=== PATIENT | male | born 1975 | race Caucasian/White ===

== ENCOUNTER 2022-10-31 13:38 | Emergency (ER) | payer SELFPAY ==
[2022-10-31 13:39] VITALS: BP 116/78; PULSE 74; RESP 18; TEMP 36.7; O2SAT 100; BMI 35.6
--- NOTE | 2022-10-31 14:16 | EKG12_ITS ---
Test Reason : CHEST PAIN Blood Pressure : / mmHG Vent. Rate : 069 BPM Atrial Rate : 069 BPM P-R Int : 154 ms QRS Dur : 090 ms QT Int : 384 ms P-R-T Axes : 000 182 170 degrees QTc Int : 411 ms Normal sinus rhythm Right superior axis deviation T wave abnormality, consider inferior ischemia Abnormal ECG Confirmed by MARY LIU, PATI ([id number]), tape editor JOSE GOMEZ ([id number]) on 11/01/2022 1:17:36 PM Referred By: OFELIA Confirmed By:PATI HERNANDEZ MD
[2022-10-31 14:29] LABS: Absolute Lymphocyte Count 0.85 X10^3/uL (0.83-4.51); Absolute Neutrophil Count 2.9 X10^3/uL (2.0-7.7); Basophil# 0.03 X10^3/uL; Basophil% 0.7 % (0-1); Eosinophil# 0.08 X10^3/uL; Eosinophils% 1.8 % (0-5); Hemoglobin 15.9 g/dL (13.0-16.5); Lymphocyte # 0.85 X10^3/ul (0.83-4.51); Lymphocyte % 18.9 % (19-41); Mean Corp Hgb Conc 33.8 g/dL (32-36); Mean Corpuscular Hgb 28.4 pg (27.0-32.0); Mean Corpuscular Volume 83.9 fL (80-94); Mean Platelet Vol. 9.6 fl (6.2-12.0); Monocyte# 0.59 X10^3/uL; Monocyte% 13.1 % (0-10); NRBC Flagged by Analyzer 0 % (0-5); Neutrophil # 2.93 X10^3/uL (2.7-7.7); Neutrophil % 65.3 % (47-70); Platelet Count 230 K/mm3 (150-450); RBC Distribution Width SD 39.9 fl (35.1-43.9); White Blood Count 4.5 K/mm3 (4.4-11.0)
[2022-10-31 14:33] VITALS: PULSE 68; RESP 13; O2SAT 96
--- NOTE | 2022-10-31 14:35 | RAD_ITS ---
STUDY: X-RAY CHEST REASON FOR EXAM: Male, 47 years old. Chest pain TECHNIQUE: Single AP portable view of the chest. COMPARISON: None. FINDINGS: EKG electrodes are seen. The lungs are clear and expanded. Scattered calcified granulomas. There is no demonstrated pleural abnormality. Normal size heart. Normal mediastinum and bora. Normal visualized pulmonary arteries. Normal visualized aortic arch and descending thoracic aorta. Normal visualized thoracic spine. Normal visualized ribs, clavicles, and shoulders. There is no demonstrated abnormality of the visualized soft tissue structures of the upper abdomen. RAD/Chest 1 View (Portable) IMPRESSION: Normal x-ray examination of the chest. Electronically Signed: Lopez Medrano MD at 14:56 EDT ,
--- NOTE | 2022-10-31 14:41 | EDS_ITS ---
HPI History of Present Illness Chief Complaint: Chest Pain Narrative Narrative: 47-year-old male who denies significant past medical history presents with chest pain and pressure that he experienced this morning at around 230, over 12 hours ago. He states that he went to bed, and everything was fine, and woke up with chest pressure mainly on the left side of his chest. He may have been slightly nauseated but did not vomit. Does not really feel short of breath. No recent fever or cough. He has stated that over the last 6 months he is woken up and his neck and pillow have been wet with night sweats. Family history includes early coronary artery disease in his maternal grandfather. He states that he has been fine all day, and only lasted around 10 minutes earlier this morning and has not returned. He denies any DVT or PE risk factors. No leg swelling. PFSH PFSH Allergy/AdvReac Type Severity Reaction Status Date / Time No Known Allergies Allergy Verified 10/31/22 13:41 Social History Smoking Status: Never smoker ROS ROS ED ROS Narrative Constitutional: No fever, no chills. HEENT: No sore throat. No neck pain. No loss of vision. No rhinorrhea. Cardiovascular: 10 minutes of chest pressure/chest pain-resolved. No palpitations. No pedal edema. Respiratory: No cough, no shortness of breath. Abdominal: No abdominal pain. No nausea. No vomiting. Genitourinary: No dysuria. No hematuria. Musculoskeletal: No myalgias. No arthralgias. Neurologic: No headaches. No dizziness. No lightheadedness. Skin: No rash. No change in color. Psychiatric: No depression. No anxiety. EXAM Physical Exam Narrative Exam Narrative: Afebrile. Vital signs noted. HEENT: Normocephalic. Atraumatic. PERRL, EOMI. Neck soft and supple. No point tenderness or step off. Cardiovascular: Regular rate and rhythm. No murmurs, rubs, or gallops appreciated. Respiratory: No tachypnea. Lungs clear to auscultation bilaterally. Gastrointestinal: Abdomen soft, nontender, with normoactive bowel sounds. No rebound or guarding. Neurological: Awake. Alert. Nonfocal, nonlateralizing. Skin: No rash. Normal color. No pallor. Musculoskeletal: No pedal edema. Full range of motion extremities. Const Vital Signs: 10/31/22 13:39 10/31/22 14:33 10/31/22 14:33 Temperature 98.1 F Temperature Source Temporal Pulse Rate 74 68 Respiratory Rate 18 13 Blood Pressure 116/78 Blood Pressure Mean 90 Pulse Ox 100 96 Oxygen Delivery Method Room Air Room Air Room Air 10/31/22 17:46 Temperature Temperature Source Pulse Rate 88 Respiratory Rate 16 Blood Pressure 131/86 H Blood Pressure Mean 101 Pulse Ox 99 Oxygen Delivery Method Room Air Heart Score History: Slightly/Non-Suspicious ECG: Normal Age: >45 - <65 years Risk Factors: 1 or 2 Risk Factors Score: 2 MDM MDM MDM Narrative Medical decision making narrative: I reviewed the patient's EMR he does not have any prior ED visits. I individually interpreted his EKG as normal sinus rhythm at 69 bpm without ectopy or acute ST changes. No STEMI. Nursing protocol chest pain work-up was pursued including 2-hour troponin. In the differential diagnosis is acute coronary syndrome/STEMI/non-STEMI. Lower on the differential is pulmonary embolism and pneumothorax, but the history and physical is not suggestive of this. Additionally, he is PERC negative. His pulse ox is 100% on room air without evidence of hypoxia. Additionally, I have lower suspicion for pneumonia as the history and physical is also not suggestive of this. Reviewed his laboratory work and essentially unremarkable with a normal white count of 4.5. Hemoglobin is normal at 15.9, platelet count normal at 230. Electrolyte panel is grossly unremarkable except for anion gap low at 3, glucose normal at 84, initial high-sensitivity troponin is 6 with 2-hour troponin of 5 for a delta of -1. I do not feel he requires observation at this time. Chest x-ray in 1 view interpreted by myself independently shows no acute process, no pneumonia or pneumothorax. I reviewed the radiology report which confirms my independent interpretation. At this point in time, his states that they have a primary care physician with whom they can follow-up with. He was told to follow-up with them regarding this chest pain, and has reported night sweats over the last few months. I feel he be discharged safely home with follow-up. Return instructions were reviewed. Disposition is discharged home in stable condition. History & Record Review Additional record(s) reviewed:: No prior records Lab Data Attestation: I reviewed the patient's lab results. Labs: Laboratory Results - last 24 hr 10/31/22 10/31/22 14:21 16:52 WBC 4.5 RBC 5.60 Hgb 15.9 Hct 47.0 MCV 83.9 MCH 28.4 MCHC 33.8 RDW Std Deviation 39.9 RDW Coeff of Ashkan 13.0 Plt Count 230 MPV 9.6 Immature Gran % (Auto) 0.200 Neut % (Auto) 65.3 Lymph % (Auto) 18.9 L [place] % (Auto) 13.1 H Eos % (Auto) 1.8 Baso % (Auto) 0.7 Absolute Neuts (auto) 2.9 Absolute Lymphs (auto) 0.85 Nucleated RBC % 0 Sodium 137 Potassium 4.0 Chloride 106 Carbon Dioxide 28.0 Anion Gap 3 L BUN 15 Creatinine 1.16 Estim Creat Clear Calc 81.29 Est GFR (MDRD) Af Amer 87 Est GFR (MDRD) Non-Af 72 BUN/Creatinine Ratio 12.9 Glucose 84 Calcium 9.2 Troponin I High Sens 6 5 Radiography Diagnostic Testing: Clinical Impression(s) from Imaging Studies Chest X-Ray 10/31/22 14:35 IMPRESSION: Normal x-ray examination of the chest. Electronically Signed: Lopez Medrano MD at 14:56 EDT , Discharge Plan Triage Chief Complaint: Chest Pain ED Provider: Avtar Gonzalez Dx/Rx/DC Orders Clinical Impression: Chest pain, Night sweats Instructions: ED Chest Pain, Uncertain Cause Primary Care Provider: Care Physician,No Primary Referrals: Care Physician,No Primary [Primary Care Provider] - Activity Restrictions/Additional Instructions: Follow-up with your primary care physician in the next 3 to 5 days. Return with increasing pain, new or worsening symptoms. Disposition Disposition: Home, Self Care
[2022-10-31 14:46] LABS: Anion Gap 3 (5-15); BUN 15 mg/dL (7-18); BUN/Creat Ratio 12.9 RATIO (10-20); Calcium,Total 9.2 mg/dL (8.5-10.1); Chloride 106 mmol/L (98-107); Creatinine, Serum 1.16 mg/dL (0.70-1.30); EST Glomerular Filtration Rate 72 mL/min (>60); Est Glom Filt Rate - Afr Amer 87 mL/min (>60); Estimated Creatinine Clearance 81.29 ml/min; Glucose 84 mg/dL (74-106); Sodium Level 137 mmol/L (136-145); Troponin-I HS (w/2H Reflex) 6 pg/mL (3.0-78.0)
[2022-10-31 16:26] LABS: Reflex Troponin-HS? (from REC) Y
[2022-10-31 17:30] LABS: Troponin-I HS 5 pg/mL (3.0-78.0)
[2022-10-31 17:46] VITALS: BP 131/86; PULSE 88; RESP 16; O2SAT 99
== END 2022-10-31 18:08 | disposition home or self-care (01) ==
PROVIDERS: Emergency Provider Emergency Medicine; Visit Provider Emergency Medicine
DX: R07.9 Chest pain, unspecified (principal); R61 Generalized hyperhidrosis
CPT/HCPCS: 71045; 80048; 84484; 85025; 93005; 99284; A4216